=== PATIENT | female | born 1960 | race Caucasian/White ===

== ENCOUNTER → 2016-10-29 17:12 | Outpatient (CLI) | payer MEDICAID ==
[2016-02-27 09:35] VITALS: BMI 22.8
[~2016-10-29 17:12] MED LIST: BUTALB-APAP-CA1 EACH PO; PROTONIX40 MG PO; WELLBUTRIN SR150 MG PO
== END | disposition home or self-care (01) ==
LOC: D.MAMMO 10-13 10:00
DX: R92.8 Other abnormal and inconclusive findings on diagnostic imaging of breast (principal)

== ENCOUNTER → 2017-07-01 16:55 | Outpatient (CLI) | payer MEDICAID ==
[2016-02-27 09:35] VITALS: BMI 22.8
== END | disposition home or self-care (01) ==
LOC: D.MAMMO 06-22 13:30 → D.US 06-22 14:30 → D.MAMMO 13:30
DX: N63 Unspecified lump in breast (principal)